=== PATIENT | male | born 1985 | race Hispanic/Latino ===

== ENCOUNTER 2019-05-28 23:11 | Emergency (ER) | payer SELFPAY ==
[2019-05-28] MEDS ORDERED: Famotidine/PF 20 mg/2ml Vial ONE (23:20)
[2019-05-28] MEDS ORDERED: methylPREDNISolone Sod Succ/PF 125 MG/2 ML VIAL ONE (23:20)
[2019-05-28] MEDS ORDERED: diphenhydrAMINE 50 MG/ML VIAL ONE (23:20)
== END 2019-05-29 00:10 | disposition home or self-care (01) ==
LOC: ERS 23:11
DX: L50.0 Allergic urticaria (principal)
CPT/HCPCS: 96361; 96374; 96375; J1200; J2930; S0028